=== PATIENT | female | born 1970 | race Caucasian/White ===

== ENCOUNTER 2020-10-14 10:30 | Outpatient (CLI) | payer MEDICAID ==
[2020-10-14 11:00] VITALS: BP 126/92
--- NOTE | 2020-10-14 15:00 | Consultation ---
DATE OF CONSULTATION: 10/14/2020 GASTROENTEROLOGY CONSULTATION CONSULTING PHYSICIAN: Faizan Tran MD. CHIEF COMPLAINT: Referral for pancreatic cyst. PAST MEDICAL HISTORY: 1. Hypertension. 2. Back pain. PAST SURGICAL HISTORY: Multiple surgeries including cholecystectomy, sleeve gastrectomy, spinal fusion, shoulder surgery, tummy tuck, and wrist surgery. FAMILY HISTORY: Grandmother had gastric cancer. Mother had colon cancer. Sister had breast cancer. SOCIAL HISTORY: The patient drinks alcohol only occasionally. Quit tobacco in 2017. ALLERGIES: No known drug allergies. REVIEW OF SYSTEMS: Negative. PHYSICAL EXAMINATION: VITAL SIGNS: Temperature 98.2, blood pressure 126/92, pulse 74, respirations 20. HEENT: Normocephalic and atraumatic. Sclerae are anicteric. NECK: Supple. No evidence of obvious lymphadenopathy. CARDIOVASCULAR: Regular rate and rhythm. Plus S1, S2. LUNGS: Clear to auscultation. ABDOMEN: Positive bowel sounds. Soft and nontender. No rebound. No guarding. No peritoneal sign. EXTREMITIES: No cyanosis, no clubbing, no edema. ASSESSMENT AND PLAN: This is a 49-year-old female with referral for pancreatic cyst. Unfortunately, I do not have any CT scan results. We will try to obtain the CT records and try to schedule the patient for endoscopic ultrasound. Faizan Tran M.D. DR: DARRIN JOB#: [id number] CC:
== END 2020-10-14 12:30 | disposition home or self-care (01) ==
LOC: PAN 10:30
DX: K86.2 Cyst of pancreas (principal); Z90.49 Acquired absence of other specified parts of digestive tract; Z98.1 Arthrodesis status; Z87.891 Personal history of nicotine dependence; I10 Essential (primary) hypertension
CPT/HCPCS: G0463

== ENCOUNTER → 2020-11-14 | Day surgery (SDC) | payer MEDICAID ==
[~2020-11-14] VITALS: Ht 167.6 cm; Wt 88.0 kg
[2020-11-14] VITALS (7 sets, daily range): BP systolic 94–123; BP diastolic 52–79
[~2020-11-14] MED LIST: CYCLOBENZAPRINE10 MG ORAL; FAMOTIDINE20 MG ORAL; HYDROCODON-ACE1 EA13 ORAL; Heplock Flush 100 units/ml 3 ml syr ONE; LOSARTAN POTASS50 MG ORAL; LR 1000ml 1,000 ML IVLG SCH; MULTI VITAMIN1 EACH ORAL; Midazolam 2mg/2ml Inj ONE; OXYCONTIN20 MG ORAL; fentaNYL 100 mcg/2 mL IV ONE; fentaNYL 100 mcg/2 mL IV PRN; vitamin d PO
--- NOTE | 2020-11-14 11:19 | Pre-Procedure Note/Attestation ---
Pre-Procedure Note/Attestation Complete Prior to Procedure Planned Procedure: not applicable Procedure Narrative: egd/eus Indications for Procedure Pre-Operative Diagnosis: pancreatic cyst Attestation I attest that I discussed the nature of the procedure; its benefits; risks and complications; and alternatives (and the risks and benefits of such alternatives), prior to the procedure, with the patient (or the patient's legal goodwill representative). I attest that, if there was a reasonable possibility of needing a blood t ransfusion, the patient (or the patient's legal goodwill representative) was given the [facility] standardized written summary, pursuant to the Krzysztof Aisha Blood Safety Act ([place] Health and Safety Code # 1645, as amended). I attest that I re-evaluated the patient just prior to the surgery and that there has been no change in the patient's H&P, except as documented below: Faizan Tran MD Nov 14, 2020 11:19
--- NOTE | 2020-11-14 11:20 | Short Stay Surgery H&P ---
History of Present Illness History of Present Illness Chief Complaint see office consult note HPI Cindy Hendrickson is a 49 year old female who was admitted on for Pancreatic Mass Patient History Allergies: Coded Allergies: No Known Allergies (Unverified , 11/11/20) Medication History Scheduled Cyclobenzaprine Hcl* (Flexeril*), 10 MG ORAL NEEDED, (Reported) Famotidine* (Pepcid 20mg tablet*), 20 MG ORAL HS, (Reported) Hydrocodone Bit/Acetaminophen 10-325* (Hydrocodon-Acetaminophn 10-325*), 1 TAB ORAL Q6H, (Reported) Losartan Potassium* (Losartan Potassium*), 50 MG ORAL DAILY, (Reported) Multivitamin (Multi Vitamin Daily), 1 TAB ORAL DAILY, (Reported) Oxycodone Hcl Er* (Oxycontin*), 20 MG ORAL EVERY 12 HOURS, (Reported) [vitamin d], 1 TAB PO DAILY, (Reported) Physical Exam Vital Signs Last Vital Signs Date Time Temp Pulse Resp B/P (MAP) Pulse Ox O2 Delivery O2 Flow Rate FiO2 11/14/20 10:25 Room Air 11/14/20 10:05 97.8 80 20 123/79 99 Plan Attestation Are the patient's medical conditions optimized for surgery? Faizan Tran MD Nov 14, 2020 11:19
--- NOTE | 2020-11-14 11:50 | Anethesia Preoperative Eval ---
Anesthesia Pre-op PMH/ROS General Date of Evaluation: Nov 14, 2020 Time of Evaluation: 11:10 Anesthesiologist: Cory ASA Score: ASA 3 Mallampati Score Class I : Soft palate, uvula, fauces, pillars visible Class II: Soft palate, uvula, fauces visible Class III: Soft palate, base of uvula visible Class IV: Only hard plate visible Mallampati Classification: Class II Surgeon: Marc Diagnosis: Abdominal pain Surgical Procedure: EGD with EUS Anesthesia History: none Family History: no anesthesia problems Allergies: Coded Allergies: No Known Allergies (Unverified , 11/11/20) Medications: see eMAR Patient NPO?: Yes Past Medical History Cardiovascular: Reports: HTN; Denies: CAD, ME, valve dz, arrhythmia, other Pulmonary: Denies: asthma, COPD, SUAD, other Gastrointestinal/Genitourinary: Reports: GERD; Denies: CRI, ESRD, other Neurologic/Psychiatric: Reports: depression/anxiety, other - chronic pain; Denies: dementia, CVA, TIA Endocrine: Denies: DM, hypothyroidism, steroids, other HEENT: Denies: cataract (L), cataract (R), glaucoma, HABEMATOLEL (L), HABEMATOLEL (R), other Hematology/Immune: Reports: anemia - mild; Denies: DVT, bleeding disorder, other Other: obesity - s/p gastric sleave Sx PMH Narrative: as above PSxH Narrative: Multiple see H&P Anesthesia Pre-op Phys. Exam Physician Exam Last Vital Signs Date Time Temp Pulse Resp B/P (MAP) Pulse Ox O2 Delivery O2 Flow Rate FiO2 11/14/20 10:25 Room Air 11/14/20 10:05 97.8 80 20 123/79 99 Constitutional: NAD Neurologic: CN 2-12 intact Cardiovascular: RRR Respiratory: CTA Gastrointestinal: S/NT/ND Airway Exam Mallampati Score: Class III MO: limited Neck: stiff ROM: limited Teeth: intact Dentures: no upper, no lower Anesthesia Pre-op A/P Risk Assessment & Plan Assessment: Asa 3 Plan: MAC Status Change Before Surgery: No Myron England MD Nov 14, 2020 11:50
--- NOTE | 2020-11-14 12:09 | Endoscopy Procedure Note ---
Endoscopy Procedure Note General Indication for Procedure: pancreatic cyst Procedures Performed: other - EUS Operative Findings/Diagnosis: same Specimen: yes Pt Tolerated Procedure Well: Yes Estimated Blood Loss: none Anesthesia Anesthesiologist: wang Anesthesia: MAC Inserted Devices Implant(s) used?: No GI Core Measures 50 yrs or older w/o bx or poly: Not Applicable 10yrs. F/U recommended: Not Applicable Faizan Tran MD Nov 14, 2020 12:09
--- NOTE | 2020-11-14 12:20 | Immediate Post-Op Evaluation ---
Immediate Post-Op Evalulation Immediate Post-Op Evalulation Procedure: EGD with EUS and Pancreatic Bx. Date of Evaluation: Nov 14, 2020 Time of Evaluation: 12:19 IV Fluids: 500 Blood Products: none Estimated Blood Loss: none Urinary Output: none Blood Pressure Systolic: 128 Blood Pressure Diastolic: 76 Pulse Rate: 64 Respiratory Rate: 20 O2 Sat by Pulse Oximetry: 99 Temperature (Fahrenheit): 97.6 Pain Score (1-10): 2 Nausea: No Vomiting: No Complications none Patient Status: awake, patent, none Hydration Status: adequate Myron England MD Nov 14, 2020 12:20
--- NOTE | 2020-11-14 13:00 | Procedure Note ---
DATE OF PROCEDURE: 11/14/2020 SURGEON: Faizan Tran MD. PROCEDURE: EUS with FNA. ANESTHESIA: Per Dr. England. INSTRUMENT: Olympus adult flexible EUS scope. INDICATION: Pancreatic cyst. REASON FOR PROCEDURE: The procedure, risks, benefits, and possible consequences, including hemorrhage, aspiration, perforation and infection, and alternative treatments, were explained to the patient/legal guardian by Dr. Faizan Tran and the patient/legal guardian understood and accepted these risks. PROCEDURE IN DETAIL: After informed consent obtained and the patient was adequately sedated, EUS radial scope was advanced from mouth into the esophagus. The patient has history of sleeve gastrectomy, so procedure was limited. We were able to see the pancreatic cyst which was seen on the CT scan. It was in the body of the pancreas. There is doubt that this is coming off of the pancreatic duct. Pancreatic duct was not dilated. This cyst seems to be actually combination of two cysts together that is why it was measured 1.[address]. It seems the larger one is about 8 mm, the smaller one about 4 mm and kind of the combination looks about 1.2 cm together. No obvious filling defect. No thickening of the wall. At this time, the EUS radial scope was removed and linear was introduced for FNA. We used a 22-gauge needle to the cyst one time. We were only able to get small amount of fluid from the cyst given it was only 8 mm on the largest one. Not enough most probably to send for CEA. After the FNA, the cyst collapsed. SUMMARY OF FINDINGS: A cyst in the body of the pancreas, combination of the two cysts coming together, one is 8 mm and another one is 4, combination of 1.2 cm simple looking cyst, doubt coming from the pancreatic duct. No evidence of any pancreatitis dilatation, status post FNA, but minimum fluid collection given the size of the cyst. RECOMMENDATIONS: At this time, we recommend the patient to have another MRI or CT in a year for followup. Faizan Tran M.D. DR: DARRIN JOB#: [id number] CC:
== END | disposition home or self-care (01) ==
LOC: GAS 09:40
DX: K86.2 Cyst of pancreas (principal); Z98.84 Bariatric surgery status; Z79.899 Other long term (current) drug therapy; I10 Essential (primary) hypertension; K21.9 Gastro-esophageal reflux disease without esophagitis; F32.9 Major depressive disorder, single episode, unspecified; F41.9 Anxiety disorder, unspecified; D64.9 Anemia, unspecified; Z68.31 Body mass index [BMI] 31.0-31.9, adult
CPT/HCPCS: 43232; J1642; J2250; J3010; U0004

== ENCOUNTER 2020-11-25 10:30 | Outpatient (CLI) | payer MEDICAID ==
[~2020-11-25 10:30] MED LIST changes: -Heplock Flush 100 units/ml 3 ml syr ONE; -LR 1000ml 1,000 ML IVLG SCH; -Midazolam 2mg/2ml Inj ONE; -fentaNYL 100 mcg/2 mL IV ONE; -fentaNYL 100 mcg/2 mL IV PRN
[2020-11-25] MEDS ORDERED: OXYCODONE HCL10 MG ORAL (10:46)
[2020-11-25 10:48] VITALS: BP 133/78
--- NOTE | 2020-11-26 15:33 | General Progress Note ---
Subjective ROS Limited/Unobtainable: Yes Allergies: Coded Allergies: No Known Allergies (Unverified , 11/11/20) Objective General Appearance: alert EENT: normal ENT inspection Neck: supple Cardiovascular: normal rate Respiratory/Chest: decreased breath sounds Abdomen: normal bowel sounds, non tender, soft Extremities: non-tender Assessment/Plan Assessment/Plan: s/p EUS SUMMARY OF FINDINGS: A cyst in the body of the pancreas, combination of the two cysts coming together, one is 8 mm and another one is 4, combination of 1.2 cm simple looking cyst, doubt coming from the pancreatic duct. No evidence of any pancreatitis dilatation, status post FNA, but minimum fluid collection given the size of the cyst CEA [address] in 3 months . Faizan Tran MD Nov 26, 2020 15:33
== END 2020-11-25 15:15 | disposition home or self-care (01) ==
LOC: PAN 10:30
DX: K86.2 Cyst of pancreas (principal)
CPT/HCPCS: 99212